=== PATIENT | male | born 1945 | race Caucasian/White ===

== ENCOUNTER → 2017-05-24 12:28 | Outpatient (CLI) | payer OTHER, SELFPAY ==
--- NOTE | 2017-05-24 | PROSBIL_PTH ---
PATIENT: XOCHILT YI . LOC: [facility] U#:[id number] AGE/SX: 79/M ROOM: RE05/24/[address]: Dr. Christopher Santiago MD : 1945 BED: DIS: SPEC #: [id number] RECD: 05/24/17 14:06 STATUS: NELI FIONA #: [id number] AIME: 05/24/17 00:[address]: Christopher Santiago DEPT: SURGICAL PATHOLOGY RECD BY: Varghese Young ENTERED: 05/24/17 14:07 SP TYPE: PROST BX CHETNA DR: Dr. Myke Ball DO Tissues: A - PROSTATE RIGHT B - PROSTATE RIGHT C - PROSTATE RIGHT D - PROSTATE LEFT E - PROSTATE LEFT F - PROSTATE LEFT Procedures: PROSTATE BX HEADER OPERATION: Prostate biopsy PRE-OP DIAGNOSIS: Elevated PSA TISSUE SUBMITTED: A - Right apex, B - Right mid, C - Right base, D - Left apex, E - Left mid, F - Left base MICROSCOPIC DIAGNOSIS A. Right prostate, apex, core biopsy: Prostatic tissue, negative for malignancy in the submitted specimen. B. Right prostate, mid, core biopsy: Prostatic adenocarcinoma: Hollister grade: 3+4=7 Number of cores involved: 2 out of 2 Proportion of tissue involved: ~30% Perineural invasion: Present. Greatest tumor length: 0.4 cm Focal high-grade prostatic intraepithelial neoplasia (HGPIN). C. Right prostate, base, core biopsy: Prostatic adenocarcinoma: Jannet grade: 3+4=7 Number of cores involved: 2 out of 2 Proportion of tissue involved: ~40% Perineural invasion: Present. Greatest tumor length: 0.5 cm D. Left prostate, apex, core biopsy: Prostatic tissue, negative for malignancy in the submitted specimen. E. Left prostate, mid, core biopsy: Prostatic tissue, negative for malignancy in the submitted specimen. F. Left prostate, base, core biopsy: Prostatic tissue, negative for malignancy in the submitted specimen. SJ:hossein 05/25/17 MICROSCOPIC DESCRIPTION Slides are reviewed. GROSS DESCRIPTION A - Received is one container designated prostate, right apex. The specimen consists of two elongated fragments of light dao-white soft tissue measuring 0.8 and 1 cm in length and 0.1 cm in diameter. The specimen is totally submitted in one cassette. B - Received is one container designated prostate, right mid. The specimen consists of two elongated fragments of light dao-white soft tissue measuring 0.4 and 1.5 cm in length and 0.1 cm in diameter. The specimen is totally submitted in one cassette. C - Received is one container designated prostate, right base. The specimen consists of two elongated fragments of light dao-white soft tissue measuring 0.8 and 1 cm in length and 0.1 cm in diameter. The specimen is totally submitted in one cassette. D - Received is one container designated prostate, left apex. The specimen consists of two elongated fragments of light dao-white soft tissue measuring 0.3 and 1.5 cm in length and 0.1 cm in diameter. The specimen is totally submitted in one cassette. E - Received is one container designated prostate, left mid. The specimen consists of two elongated fragments of light dao-white soft tissue measuring 0.3 and 1.5 cm in length and 0.1 cm in diameter. The specimen is totally submitted in one cassette. F - Received is one container designated prostate, left base. The specimen consists of two elongated fragments of light dao-white soft tissue measuring 0.3 and 1.2 cm in length and 0.1 cm in diameter. The specimen is totally submitted in one cassette. / CLAY:hossein 05/24/17 TC:0 CPT: 21737 x6
== END ==
PROVIDERS: Visit Provider Urology
DX: R97.20 Elevated prostate specific antigen [PSA] (principal)
CPT/HCPCS: 88305; G0416

== ENCOUNTER → 2017-06-01 07:24 | Outpatient (CLI) | payer OTHER, SELFPAY ==
--- NOTE | 2017-06-01 07:28 | CT_ITS ---
STUDY: CT ABDOMEN AND PELVIS WITH CONTRAST REASON FOR EXAM: Male, 71 years old. Prostate cancer RADIATION DOSAGE (If Supplied By Facility): CTDIvol = ( 10.42 ) mGy, DLP = ( 545.70 ) mGycm TECHNIQUE: Transaxial images were obtained from the dome of the diaphragm to the symphysis pubis without oral contrast. 100CC ml of Isovue 300 contrast was administered. Sagittal and coronal images were reconstructed. Individualized dose optimization techniques were used for this CT. COMPARISON: None. FINDINGS: The visualized lung bases are clear. The visualized portions of the heart and pericardium are within normal limits. There are no calcified gallstones present. There is a subcentimeter hypodensity in the right lobe of the liver which is too small to characterize. However, this likely represents a cyst. The liver is otherwise within normal limits. There are no suspicious hepatic lesions. The spleen is normal in size. The pancreas is within normal limits. The adrenal glands are within normal limits. There are no obstructing renal stones. There is no hydronephrosis. There is a simple cyst in the right kidney. The left kidney is unremarkable. Normal visualized stomach. There is no bowel obstruction or inflammation. The appendix is visualized and appears normal. The aorta is normal in caliber. There is no abdominal or pelvic free air, free fluid, fluid collection or lymphadenopathy. The prostate is normal in size. There are no destructive osseous lesions. There are degenerative changes noted in the spine. CT/Abdomen/Pelvis W IV Cont ONLY IMPRESSION: No evidence of metastatic disease in the abdomen or pelvis. Electronically Signed: Kd Merrill, at 22:10 EST Tel , Service support ,
[2017-06-01 07:50] LABS: CREATININE FINGERSTICK 0.9 mg/dL (0.70-1.30); EGFR FINGERSTICK > 60.0000 mL/min (>60)
== END ==
PROVIDERS: Family Provider Family Medicine; PCP Family Medicine; Visit Provider Urology
DX: C61 Malignant neoplasm of prostate (principal)
CPT/HCPCS: 74177; Q9967

== ENCOUNTER → 2017-06-03 08:24 | Outpatient (CLI) | payer OTHER, SELFPAY ==
--- NOTE | 2017-06-03 08:26 | NM_ITS ---
CLINICAL: 71-year-old male with reported history of carcinoma of the prostate. WHOLE BODY 99m Tc MDP RADIONUCLIDE BONE SCINTIGRAPHY COMPARISON: CT of the abdomen-pelvis report 06/01/2017 FINDINGS: Following the intravenous administration of 26.7 mCi of 99m Tc MDP, whole body bone images reveal: 1. Increased radiopharmaceutical concentration is identified in the right anterior first rib at the costochondral junction. 2. Enhanced tracer concentration is identified in the acromioclavicular and glenohumeral compartments of both shoulders, bilateral hands, mid cervical spine posteriorly on the left and right, the first, fourth, ninth and 11th thoracic vertebra, first lumbar vertebra posteriorly in the midline, fourth lumbar vertebra posteriorly on the right, bilateral knees, the left ankle. 3. The remaining skeletal structures are scintigraphically unremarkable with normal-appearing renal images and urinary bladder activity identified. There is an increase in uptake noted in the plantar aspect of the left hindfoot most consistent with periostitis and/or trauma-fracture. Facilitated uptake is noted in the greater trochanteric aspect of the left proximal femur most consistent with periostitis and/or trochanteric bursitis. NM/Bone Scan Whole Body IMPRESSION: 1. The increase in radiopharmaceutical concentration defined in the right anterior first rib at the costochondral junction is most consistent with trauma-fracture. 2. 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 3. There is no definitive scintigraphic evidence of skeletal metastatic disease on the current examination. Electronically Signed: Israel Shah DO at 11:37 EST Tel , Service support ,
== END ==
PROVIDERS: Family Provider Family Medicine; PCP Family Medicine; Visit Provider Urology
DX: C61 Malignant neoplasm of prostate (principal)
CPT/HCPCS: 78306

== ENCOUNTER 2017-07-28 05:51 | Inpatient (IN) | payer MEDICARE, SELFPAY ==
[2017-07-19 14:15] VITALS: BP 146/77; PULSE 80; RESP 16; TEMP 36.9; O2SAT 95; BMI 26.6
--- NOTE | 2017-07-19 14:22 | EKG12_ITS ---
Test Reason : Blood Pressure : / mmHG Vent. Rate : 078 BPM Atrial Rate : 078 BPM P-R Int : 146 ms QRS Dur : 102 ms QT Int : 410 ms P-R-T Axes : 024 -45 058 degrees QTc Int : 467 ms Poor data quality, interpretation may be adversely affected Sinus rhythm with Fusion complexes Left axis deviation Septal infarct , age undetermined Abnormal ECG Confirmed by BARBARA WILLIS, BREANNA ([id number]), editor producer FRANK PANCHAL ([id number]) on 07/20/2017 3:39:05 PM Referred By: Christopher Santiago Confirmed By:BREANNA JIMENEZ MD
[2017-07-19 15:04] LABS: Absolute Lymphocyte Count 1.78 X10^3/ul (0.83-4.51); Basophil# 0.04 X10^3/uL; Basophil% 0.7 % (0-1); Eosinophil# 0.06 X10^3/uL; Eosinophils% 1.1 % (0-5); Hematocrit 34.7 % (40-54); Lymphocyte # 1.78 X10^3/ul (4.0); Lymphocyte % 31.7 % (19-41); Mean Corpuscular Volume 91.1 fL (80-94); Mean Platelet Vol. 10.7 fl (6.2-12.0); Monocyte# 0.74 X10^3/uL; Monocyte% 13.2 % (0-10); Neutrophil # 2.99 X10^3/uL (2.7-7.7); Neutrophil % 53.1 % (47-70); Platelet Count 196 K/mm3 (150-450); RBC Distribution Width CV 11.9 % (11.6-14.6); RBC Distribution Width SD 38.5 fl (35.1-43.9); Red Blood Count 3.81 M/mm3 (4.6-6.2); White Blood Count 5.6 K/mm3 (4.4-11.0)
[2017-07-19 15:05] LABS: Hemoglobin 12.4 g/dl (13.0-16.5); Mean Corpuscular Hgb 32.5 pg (27.0-32.0)
[2017-07-19 15:06] LABS: Mean Corp Hgb Conc 35.7 g/gl (32-36); POSITIVE COUNT NO; POSITIVE DIFFERENTIAL NO; POSITIVE MORPHOLOGY NO
[2017-07-28] VITALS (11 sets, daily range): BP systolic 101–139; BP diastolic 61–86; PULSE 62–91; RESP 14–18; TEMP 36.3–37; O2SAT 94–100; BMI 26.6; BMI 26.4
--- NOTE | 2017-07-28 | PROST_PTH ---
PATIENT: XOCHILT YI . LOC: [facility] U#:[id number] AGE/SX: 71/M ROOM: [facility] [place] RE07/28/[address]: Dr. Christopher Santiago MD : 1945 BED: 1 DIS: 07/29/2017 SPEC #: [id number] RECD: 07/28/17 13:46 STATUS: NELI REAny #: [id number] AIME: 07/28/17 00:[address]: Christopher Santiago DEPT: SURGICAL PATHOLOGY RECD BY: Varghese Young ENTERED: 07/28/17 13:50 SP TYPE: PROSTATE OTHR DR: Dr. Myke Ball, DO Tissues: A - Prostate, NOS B - Lymph node of pelvis, NOS C - Lymph node of pelvis, NOS D - Adipose tissue Procedures: Surgery Specimen Level IV Surgery Specimen Level V Surgery Specimen Level HEADER OPERATION: Laparoscopic robotic assisted radical prostatectomy PRE-OP DIAGNOSIS: Prostate cancer, elevated PSA TISSUE SUBMITTED: A ? Prostate, B ? Right pelvic lymph node, C ? Left pelvic lymph node, D ? Fat over prostate MICROSCOPIC DIAGNOSIS A. Prostate, radical prostatectomy: Prostatic adenocarcinoma. B. Right pelvic lymph node, biopsy: Two out of two lymph nodes, negative for metastatic carcinoma. C. Left pelvic lymph node, biopsy: One lymph node, negative for metastatic carcinoma. D. Fat over prostate, biopsy: Mature adipose tissue, negative for carcinoma. PROSTATE CANCER (RADICAL) SUMMARY: Procedure ? radical prostatectomy Prostate size ? anterior-posteriorly 4 cm, transversely 3 cm and craniocaudally 3 cm Prostate weight ? 37.7 gm Lymph node sampling ? pelvic lymph node resection Histologic type ? acinar (not otherwise specified) Histologic grade ([employer] Pattern): Primary pattern - 3 Secondary pattern - 4 Tertiary pattern ? not applicable Total Jannet score - 7 Tumor Quantitation: Proportion (%) of prostate involved by tumor - ~10-15% Extraprostatic extension ? not identified Seminal vesicle invasion - not identified Margins ? apical margin is focally involved by invasive carcinoma (left lobe) Treatment effect on carcinoma ? no known presurgical therapy Lymph-Vascular invasion ? not identified Perineural invasion - present Regional lymph nodes - Number examined - 3 Number involved - 0 Distant metastasis ? not applicable Additional pathologic findings ? focal high-grade prostatic intraepithelial neoplasia (HGPIN). - focal chronic inflammation. - Bilateral vas deferens with focal calcification. PATHOLOGIC STAGE: pT2c pN0 Mx The above summary is in compliance with [employer] (CAP) Cancer Protocols Checklist and [place] Joint Committee on Cancer (AJCC), Staging Manual, 8th Ed. SJ:hossein 07/30/17 COMMENT The tumor involves right and left lobes in the apical and mid portion of the prostate. The tumor in the right lobe measures approximately 1.2 x 0.5 cm (measured microscopically) and present in the slide # 7,8,10 &12 and the tumor in the left lobe measures approximately 0.7 x 0.5 cm (measured microscopically) and present in the slide # 3, 6, 9 & 13. Please make reference to previous specimen ([id number]) right prostate, mid, core biopsy and right prostate, base, core biopsy with diagnosis of prostatic adenocarcinoma. MICROSCOPIC DESCRIPTION Slides are reviewed. GROSS DESCRIPTION A - Received in fixative is one container labeled with the patient's name and designated prostate. The specimen consists of a radical prostatectomy specimen consisting of prostate and bilateral seminal vesicles and vas deferens weighing 37.7 gm. The prostate measures 4 cm anterior-posteriorly, 3.5 cm transversely and 3 cm craniocaudally. The right seminal vesicle measures 3 x 1.5 x 0.5 cm and the right vas deferens measure 3 cm in length and 0.4 cm in diameter. The left seminal vesicle measures 3.5 x 1.5 x 0.5 cm and the left vas deferens measure 4.5 cm in length and 0.4 cm in diameter. The prostate is inked as follows: anterior surface ? yellow, posterior surface ? black, right lateral surface ? blue, left lateral surface ? green, right seminal vesicle anterior surface ? blue, posterior surface ? black, left seminal vesicle and vas deferens anterior surface ? green over black and posterior surface ? black. Serial sections of prostate do not reveal any mass lesions. [employer] sections are submitted in 20 cassettes as follows: 1 ? right seminal vesicle and vas deferens, 2 ? left seminal vesicle and vas deferens, 3 ? apical (urethral) margin enface, 4 & 5 ? bladder base margin (enface), 6-20 ? prostate (69 contains the apical portion of the prostate, 10-14 contains the middle portion of the prostate, 14 contains the anterior portion of the prostate, 15-20 basal portion of the prostate, 19 & 20 contains the most basal portion of the prostate). About 90% of the prostate is submitted. / : 07/29/17 B - Received in fixative is one container labeled with the patient's name and designated right pelvic lymph node. The specimen consists of two pieces of yellow adipose tissue measuring in aggregate 4 x 2.5 x 0.5 cm. Two lymph nodes are identified. The entire specimen is submitted in three cassettes as follows: 1 & 2 ? each containing one bisected lymph node, 3 ? rest of the specimen. / : 07/28/17 C - Received in fixative is one container labeled with the patient's name and designated left pelvic lymph node. The specimen consists of a piece of yellow adipose tissue measuring 5.5 x 1 x 1 cm. One possible lymph node is identified measuring 4.5 cm in greatest dimension. The entire specimen is submitted in three cassettes. / : 07/28/17 D - Received in fixative is one container labeled with the patient's name and designated fat over prostate. The specimen consists of a piece of yellow adipose tissue measuring 2.5 x 2 x 0.5 cm. No mass lesion is identified. The entire specimen is submitted in one cassette. / : 07/28/17 TC:0 CPT: 33651, 48266 x2, 72199
[2017-07-28] MEDS: Cefazolin 2 GM in 0.9% Normal Saline 100 ML IV (07:26)
--- NOTE | 2017-07-28 07:35 | PCM.DC.URO ---
Discharge Diet: Light diet - advance as tolerated Discharge Activity: May not drive while taking narcotic pain medications., May Shower Return to work on:: 09/08/17 Call your doctor if your incision/area has: Continuous Slow Oozing, Sudden Increased Bleeding, Increased Pain/ Swelling, Increased Redness, Foul Smelling Discharge, Swelling at the incision site Call your doctor if you observe: Fever of 101 or Higher, Inability to have a bowel movement, Uncontrolled pain Suture Line Care: Avoid Pulling/Pushing, Avoid Pinching/Bending Catheter: Brown to leg bag, Brown to large bag Drain: [place] Instructions: Discharge Instructions for Radical Prostatectomy Allergies/Adverse Reactions: Allergies No Known Allergies Allergy (Verified 07/19/17 13:50) Medications to take at Discharge Cholecalciferol (Vitamin D3) [Vitamin D3] 1,000 unit PO DAILY 07/19/17 Guaifenesin [Mucinex] 600 mg PO PRN PRN 07/19/17 Multivitamin [Multiple Vitamins] 1 each PO DAILY 07/19/17 Potassium Chloride 10 meq PO DAILY 07/19/17 Albuterol Sulfate [Ventolin Hfa] 18 gm IH PRN PRN 07/28/17 Ciprofloxacin [Cipro] 500 mg PO BID #20 tab 07/28/17 Docusate Sodium [Colace] 100 mg PO BID #20 cap 07/28/17 Hydrocodone/Acetaminophen [[place] 5-325 Tablet] 1 ea PO Q4H PRN PRN 5 Days #14 tab 07/28/17 Primary Care Physician: Myke Ball DO [Primary Care Provider] - Please Follow Up With: Christopher Santiago MD When: August 05 at 9:00am Proposed Discharge Date: 07/29/17
--- NOTE | 2017-07-28 07:40 | DCINST_ITS ---
Discharge Diet: Light diet - advance as tolerated Discharge Activity: May not drive while taking narcotic pain medications., May Shower Return to work on:: 09/08/17 Call your doctor if your incision/area has: Continuous Slow Oozing, Sudden Increased Bleeding, Increased Pain/ Swelling, Increased Redness, Foul Smelling Discharge, Swelling at the incision site Call your doctor if you observe: Fever of 101 or Higher, Inability to have a bowel movement, Uncontrolled pain Suture Line Care: Avoid Pulling/Pushing, Avoid Pinching/Bending Catheter: Brown to leg bag, Brown to large bag Drain: [place] Instructions: Discharge Instructions for Radical Prostatectomy Allergies/Adverse Reactions: Allergies No Known Allergies Allergy (Verified 07/19/17 13:50) Medications to take at Discharge Cholecalciferol (Vitamin D3) [Vitamin D3] 1,000 unit PO DAILY 07/19/17 Guaifenesin [Mucinex] 600 mg PO PRN PRN 07/19/17 Multivitamin [Multiple Vitamins] 1 each PO DAILY 07/19/17 Potassium Chloride 10 meq PO DAILY 07/19/17 Albuterol Sulfate [Ventolin Hfa] 18 gm IH PRN PRN 07/28/17 Ciprofloxacin [Cipro] 500 mg PO BID #20 tab 07/28/17 Docusate Sodium [Colace] 100 mg PO BID #20 cap 07/28/17 Hydrocodone/Acetaminophen [[place] 5-325 Tablet] 1 ea PO Q4H PRN PRN 5 Days #14 tab 07/28/17 Primary Care Physician: Myke Ball DO [Primary Care Provider] - Please Follow Up With: Christopher Santiago MD When: August 05 at 9:00am Proposed Discharge Date: 07/29/17
[2017-07-28] MEDS: Bupivacaine Mpf 0.5% 30 ML VIAL (11:20)
--- NOTE | 2017-07-28 11:24 | PCM.OPRPT ---
Report of Operation Date of Procedure: 07/28/17 Pre-Operative Diagnosis: Prostate cancer Post-Operative Diagnosis: Same Surgery/Procedure Performed:: Laparoscopic robotic assisted radical prostatectomy with bilateral nerve sparing, EMG monitoring of the nerves and sphincter, bilateral pelvic lymph node dissection, suture suspension of the urethra to prevent incontinence. Description of Surgical Findings:: 71-year-old male with a history of prostate cancer presents to the hospital today for a radical prostatectomy. He was taken back to the operating room after smooth induction of general anesthesia ,he was placed supine on the table with the legs in stirrups. His abdomen was shaved prepped and draped in usual sterile fashion. Made an incision in the umbilicus, used a Veress needle and advanced the Veress needle into the peritoneal cavity and filled the peritoneal cavity with CO2 gas. I then placed my trochars. I placed my camera trocar and robotic trochars. I then docked the robot. Started dissection in the pelvis and dissected out the right vas deferens and left vas deferens and dissected out the seminal vesicles on both sides. I then pulled out of the pelvis and dropped the bladder and created the space of Retzius I then went to the right pelvic lymph nodes and dissected out the right pelvic lymph nodes identified the landmarks of the obturator nerve lateral pelvic sidewall node of [place] and the iliac vessels after the lymph nodes were cleaned out using clips for meticulous dissection then I went to the left side and dissected out the lymph nodes in the left side using clips during the dissection. After all these lymph nodes were dissected out then I went to the prostate I incised the endopelvic fascia on both sides dissected to the apex of the prostate freed up the dorsal vein complex place a stitch through the dorsal vein complex and pulled back to the junction between the bladder and prostate dissected between the bladder and prostate the fourth arm had, I then transected through the bladder and prostate junction until I get the catheter catheter was then elevated I then dissected posteriorly until I reached the vas deferens and seminal vesicles traction on the prostate and bladder. Then I went to the right side and opened up the fascia over the prostate identify the pseudocapsule I went to the left side opened up the fascia of the proximal identify the pseudocapsule I placed my electrodes into the pelvis and put the electrodes into the lateral pelvic wall stimulated the lateral pelvic wall and found the nerve conduction channels on the long lateral pelvic rashid with good action potential seen on EMG monitoring. Once identified these nerve channels then I went to the pedicle I clipped the pedicle and then dissected the neurovascular bundle off the right posterior aspect of the prostate all the way to the apex as I worked my way to the apex there was a little lot of adhesions between the longitudinal fibers of the rectum and the and the prostate this was teased and dissected very carefully all the way to the apex. I then went to the left side identified the neurovascular bundle on the left side clipped the pedicle and then released neurovascular neurovascular bundle the left side all the way to the apex. We then transected through the dorsal vein complex placed a second stitch in the dorsal vein complex to obtain hemostasis then transected through the urethra prostate was then freed and placed in Endo Catch bag. I then placed an extra stitch in the dorsal vein complex to control bleeding. We then performed suture suspension of the urethra to prevent incontinence. We then use a stitch at the 6 o'clock position and ran the stitch from 6:00 to the 12:00 between the bladder neck and the urethra over a catheter after completion of the stitch then the bladder was flushed. Anastomosis was watertight I then re-tacked the bladder back up to the anterior abdominal wall using running stitches. We then extracted the prostate to the umbilicus closed the variceal port with a Jameson Dorman stitch extracted all the ports undocked the robot closed all the incisions with subcuticular stitches catheter was flushed and draining clear patient anesthetic was reversed taken back to PACU in good condition. Type of Anesthesia:: General Drains: martin Estimated Blood Loss (mL): 50cc - Admit VTE Documentation VTE Present on Admission: No VTE Mechan Device Prophylaxis: SCD's VTE Pharm Prophylaxis ordered?: No Reason prophylaxis not ordered:: Treatment Not Indicated
[2017-07-28] MEDS: 0.9% Normal Saline 1,000 ML 125 ML IV ×2 (13:43→22:01)
[2017-07-28] MEDS: HYDROcodone Bitartrate/Apap 5/325 Tablet PO ×2 (15:59→22:01)
[2017-07-28] MEDS: Ciprofloxacin 500 MG Tablet PO ×2 (17:36→22:01)
[2017-07-28] MEDS: Docusate Sodium 100 MG Capsule 200 MG PO ×2 (17:36→22:01)
[2017-07-29 02:15] VITALS: BP 101/63; PULSE 80; RESP 16; TEMP 37.3; O2SAT 94
[2017-07-29] MEDS: HYDROcodone Bitartrate/Apap 5/325 Tablet PO ×2 (05:57→14:10)
[2017-07-29] MEDS: 0.9% Normal Saline 1,000 ML 125 ML IV (05:57)
[2017-07-29 06:28] LABS: Hematocrit 29.2 % (40-54); Hemoglobin 10.4 g/dl (13.0-16.5); Mean Corp Hgb Conc 35.6 g/gl (32-36); Mean Corpuscular Hgb 32.5 pg (27.0-32.0); Mean Corpuscular Volume 91.3 fL (80-94); Mean Platelet Vol. 10.2 fl (6.2-12.0); Platelet Count 177 K/mm3 (150-450); RBC Distribution Width CV 12.2 % (11.6-14.6); RBC Distribution Width SD 40.4 fl (35.1-43.9); White Blood Count 8.5 K/mm3 (4.4-11.0)
[2017-07-29 06:36] LABS: Scan Indicated on CBC? Y/N NO
[2017-07-29 06:41] LABS: Anion Gap 8 (5-15); BUN 12 mg/dL (7-18); BUN/Creat Ratio 17.2 RATIO (10-20); Chloride 96 mmol/L (98-107); EST Glomerular Filtration Rate 119 mL/min (>60); Est Glom Filt Rate - Afr Amer 143 mL/min (>60); Estimated Creatinine Clearance 74.37 ml/min; Glucose 112 mg/dL (74-106); Potassium 2.9 mmol/L (3.5-5.1); Sodium Level 132 mmol/L (136-145)
[2017-07-29 06:50] VITALS: O2SAT 97
--- NOTE | 2017-07-29 06:51 | PCM.PROGNOTE ---
Subjective: tolerating reg diet out of bed yesturday. doing well. - Physical Exam General: Alert, Oriented x3, Cooperative HEENT: Atraumatic, PERRLA, EOMI, Normocephalic Neck: Supple, No JVD, Negative Carotid Bruits Lungs: Clear to auscultation, Normal air movement Cardiovascular: Regular rate, No murmurs Abdomen: Bowel Sounds Present, Soft, Non Tender Extremities: No edema, Capillary Refill Less than 3 Seconds Skin: No rashes, No breakdown Musculoskeletal: No Tenderness to Palpation of Joints or Extremities Neurological: Cranial nerves II-XII grossly intact Psych/Mental Status: Normal Affect, Appropriate Vital Signs Temp Pulse Resp BP Pulse Ox 99.2 F H 80 16 101/63 94 07/29/17 02:15 07/29/17 02:15 07/29/17 02:15 07/29/17 02:15 07/29/17 02:15 Oxygen Delivery Method Room Air Weight: 88.36 kg Body Mass Index (BMI) 26.4 Intake and Output for Last 24 Hours 07/27/17 07/28/17 07/29/17 23:59 23:59 23:59 Intake Total 6694 / 6694 1378 / 1378 Output Total 2965 / 2965 1850 / 1850 Balance 3729 / 3729 -472 / -472 Laboratory Tests Past 24 Hrs 07/29/17 07/29/17 05:58 05:58 WBC 8.5 RBC 3.20 L Hgb 10.4 L Hct 29.2 L MCV 91.3 MCH 32.5 H MCHC 35.6 RDW 12.2 RDW Differential 40.4 Plt Count 177 MPV 10.2 Sodium 132 L Potassium 2.9 L Chloride 96 L Carbon Dioxide 28.0 Anion Gap 8 BUN 12 Creatinine 0.70 Estim Creat Clear Calc 74.37 Est GFR (MDRD) Af Amer 143 Est GFR (MDRD) Non-Af 119 BUN/Creatinine Ratio 17.2 Glucose 112 H Calcium 8.0 L Medical Necessity - Tobacco Use Smoking Status: Former smoker Assessment/Plan home later today if juan diet and ambulates pain under control.
[2017-07-29 07:44] VITALS: BP 128/62; PULSE 71; RESP 16; TEMP 36.8; O2SAT 95
[2017-07-29 07:49] VITALS: RESP 16
[2017-07-29] MEDS: Multivitamins,Therapeutic Tablet 1 TABLET PO (08:02)
[2017-07-29] MEDS: Docusate Sodium 100 MG Capsule 200 MG PO (09:38)
[2017-07-29] MEDS: Ciprofloxacin 500 MG Tablet PO (09:38)
[2017-07-29 13:49] VITALS: BP 126/61; PULSE 89; RESP 16; TEMP 36.9; O2SAT 95
== END 2017-07-29 14:16 | disposition home or self-care (01) | DRG 708 ==
LOC: ACINP 05:52 → MS3 08:32 → MS2 12:23
PROVIDERS: Anesthesiology; Admitting Provider Urology; Family Provider Family Medicine; PCP Family Medicine; Visit Provider Urology
PROC: 0VT04ZZ Resection of Prostate, Percutaneous Endoscopic Approach (ICD-10-PCS; CPT 55866; principal; 2017-07-28 07:10)
DX: C61 Malignant neoplasm of prostate (principal); J43.9 Emphysema, unspecified; Z87.891 Personal history of nicotine dependence
CPT/HCPCS: 36415; 80048; 85025; 85027; 88304; 88305; 88307; 88309; 93005; 97802; J7030; J7120; J2405; J3490

== ENCOUNTER → 2017-09-13 10:37 | Outpatient (CLI) | payer MEDICARE, SELFPAY ==
[2017-09-13 12:30] LABS: PSA,Total- Diagnostic < 0.01 ng/mL (0.0-4.0)
== END ==
PROVIDERS: Family Provider Family Medicine; PCP Family Medicine; Visit Provider Urology
DX: C61 Malignant neoplasm of prostate (principal)
CPT/HCPCS: 36415; 84153

== ENCOUNTER → 2017-12-16 09:57 | Outpatient (CLI) | payer MEDICARE, SELFPAY ==
[2017-12-16 11:28] LABS: PSA,Total- Diagnostic < 0.01 ng/mL (0.0-4.0)
== END ==
PROVIDERS: Family Provider Family Medicine; PCP Family Medicine; Visit Provider Urology
DX: C61 Malignant neoplasm of prostate (principal)
CPT/HCPCS: 36415; 84153

== ENCOUNTER → 2018-06-17 09:11 | Outpatient (CLI) | payer MEDICARE, SELFPAY ==
[2017-07-28 13:26] VITALS: BMI 26.4
[2018-06-17 10:48] LABS: PSA,Total- Diagnostic < 0.01 ng/mL (0.0-4.0)
== END ==
PROVIDERS: Family Provider Family Medicine; PCP Family Medicine; Referring Provider Urology; Visit Provider Urology
DX: C61 Malignant neoplasm of prostate (principal)
CPT/HCPCS: 36415; 84153

== ENCOUNTER → 2018-09-19 13:22 | Outpatient (CLI) | payer MEDICARE, SELFPAY ==
--- NOTE | 2018-09-19 13:25 | US_ITS ---
STUDY: SCROTUM ULTRASOUND REASON FOR EXAM: Male, 72 years old. Left-sided pain TECHNIQUE: Ultrasound evaluation of the scrotum was performed with color Doppler and static hayward-scale imaging. COMPARISON: None. FINDINGS: RIGHT TESTICLE INTRATESTICULAR: There is a normal size of the right testicle. The right testicle measures 4.3 x 3.4 x 2.1 cm. There is a homogenous echotexture. There is normal arterial and normal venous vascularity. There is no demonstrated right testicular mass or cyst. EXTRATESTICULAR: The epididymis is normal in size. The epididymis head measures 1.3 x 1.2 cm. There is normal vascularity of the epididymis. There is a well-defined cystic structure within the epididymis, without internal echoes, consistent with an epididymal cyst. There is no demonstrated hydrocele. There is no demonstrated varicocele. There is no demonstrated extratesticular mass or cyst. LEFT TESTICLE INTRATESTICULAR: There is a normal size of the left testicle. The left testicle measures 4.0 x 2.8 x 2.0 cm. There is a homogenous echotexture. There is normal arterial and normal venous vascularity. There is no demonstrated left testicular mass or cyst. EXTRATESTICULAR: The epididymis is enlarged. The epididymis head measures 2.2 x 1.6 cm. There is normal vascularity of the epididymis. There is a 1.7 x 1.3 cm complex left epididymal head lesion which may represent a spermatocele. There is no demonstrated hydrocele. There is no demonstrated varicocele. There is no demonstrated extratesticular mass or cyst. US/Testicular with Arterial Flow IMPRESSION: Normal bilateral testicles with normal Doppler flow. Enlarged left epididymis with a 1.7 x 1.3 cm complex lesion that may represent a spermatocele. A follow-up ultrasound in 3-6 months is recommended to exclude a mass. Electronically Signed: Kd Merrill, at 17:35 EDT Tel , Service support ,
== END ==
PROVIDERS: Family Provider Family Medicine; PCP Family Medicine; Referring Provider Nurse Practitioner Adult Health; Visit Provider Nurse Practitioner Adult Health
DX: N50.812 Left testicular pain (principal); N50.9 Disorder of male genital organs, unspecified
CPT/HCPCS: 76870; 93976

== ENCOUNTER → 2018-12-12 13:28 | Outpatient (CLI) | payer MEDICARE, SELFPAY ==
[2017-07-28 13:26] VITALS: BMI 26.4
[2018-12-12 14:34] LABS: PSA,Total- Diagnostic < 0.01 ng/mL (0.0-4.0)
== END ==
PROVIDERS: Family Provider Family Medicine; PCP Family Medicine; Referring Provider Urology; Visit Provider Urology
DX: C61 Malignant neoplasm of prostate (principal)
CPT/HCPCS: 36415; 84153

== ENCOUNTER → 2019-08-08 08:54 | Outpatient (CLI) | payer MEDICARE, SELFPAY ==
[2017-07-28 13:26] VITALS: BMI 26.4
[2019-08-08 11:07] LABS: PSA,Total- Diagnostic < 0.01 ng/mL (0.0-4.0)
== END ==
PROVIDERS: Referring Provider Urology; Visit Provider Urology
DX: C61 Malignant neoplasm of prostate (principal)
CPT/HCPCS: 36415; 84153

== ENCOUNTER → 2020-02-05 12:34 | Outpatient (CLI) | payer MEDICARE, SELFPAY ==
[2017-07-28 13:26] VITALS: BMI 26.4
[2020-02-05 14:42] LABS: PSA,Total - Annual Screen < 0.01 ng/mL (0.00-4.00)
== END ==
PROVIDERS: Referring Provider Urology; Visit Provider Urology
DX: C61 Malignant neoplasm of prostate (principal)
CPT/HCPCS: 36415; 84153; G0103

== ENCOUNTER → 2020-08-13 08:57 | Outpatient (CLI) | payer MEDICARE, SELFPAY ==
[2017-07-28 13:26] VITALS: BMI 26.4
[2020-08-13 10:57] LABS: PSA,Total- Diagnostic < 0.01 ng/mL (0.0-4.0)
== END ==
PROVIDERS: Referring Provider Urology; Visit Provider Urology
DX: C61 Malignant neoplasm of prostate (principal)
CPT/HCPCS: 36415; 84153

== ENCOUNTER → 2021-08-15 | Outpatient (CLI) | payer MEDICARE, SELFPAY ==
[2021-08-15 10:41] LABS: PSA,Total- Diagnostic < 0.01 ng/mL (0.0-4.0)
== END | disposition home or self-care (01) ==
LOC: LAB 08:28
PROVIDERS: Referring Provider Urology; Visit Provider Urology
DX: C61 Malignant neoplasm of prostate (principal)
CPT/HCPCS: 36415; 84153

== ENCOUNTER → 2022-08-04 | Outpatient (CLI) | payer MEDICARE, SELFPAY ==
[2022-08-04 16:13] LABS: PSA,Total- Diagnostic < 0.01 ng/mL (0.0-4.0)
== END | disposition home or self-care (01) ==
LOC: LAB 13:18
PROVIDERS: Referring Provider Urology; Visit Provider Urology
DX: C61 Malignant neoplasm of prostate (principal)
CPT/HCPCS: 36415; 84153